=== PATIENT | female | born 1950 | race Caucasian/White ===

== ENCOUNTER → 2019-06-23 | Outpatient (CLI) | payer MEDICARE, OTHER ==
--- NOTE | 2019-06-23 20:29 | REP ---
LUMBOSACRAL SPINE SERIES: Five views of the lumbosacral spine are performed and compared to prior MRI of 11/14/2003. There is moderate compression deformity of L2 which is old and unchanged. No new fracture or dislocation is seen. There is normal lumbar lordosis with no spondylolysis or spondylolisthesis. There is mild diffuse spurring. There is mild disc space narrowing at L2-L3. There is mild narrowing and subchondral sclerosis at L5-S1. There is sclerosis and spurring at the posterior facet joints, particularly at L5-S1. The posterior elements are intact. There is slight curvature toward the right. IMPRESSION: Old compression deformity again noted of L2. No acute fracture or dislocation. Mild diffuse degenerative changes. Electronically Signed by John Saab MD 06/24/2019 03:31 P
--- NOTE | 2019-06-23 20:31 | REP ---
LEFT HIP, TWO VIEWS: Two views of the left hip are performed. There is no acute fracture or dislocation. There is very mild arthritic change at the hip joint with mild joint space narrowing, subchondral sclerosis and spurring. IMPRESSION: Very mild degenerative changes left hip joint. Electronically Signed by John Saab MD 06/24/2019 03:32 P
== END ==
LOC: M WUC 18:46
PROVIDERS: ATTEND Physician Assistant
DX: S76.012A Strain of muscle, fascia and tendon of left hip, initial encounter (principal); S39.012A Strain of muscle, fascia and tendon of lower back, initial encounter; M51.36 Other intervertebral disc degeneration, lumbar region; X58.XXXA Exposure to other specified factors, initial encounter; Y92.9 Unspecified place or not applicable; M16.12 Unilateral primary osteoarthritis, left hip

== ENCOUNTER → 2020-05-21 | Outpatient (CLI) | payer SELFPAY | LOC: M LABCAHC 10:20 | PROVIDERS: ATTEND Pediatrics | DX: Z11.59 Encounter for screening for other viral diseases (principal) ==